=== PATIENT | male | born 1965 | race Caucasian/White ===

== ENCOUNTER 2020-12-08 22:00 | Emergency (ER) | payer SELFPAY ==
[~2020-12-08] VITALS: Ht 188 cm; Wt 113.4 kg
[~2020-12-08 22:00] MED LIST: HYDACE5 PO; PENVK500 PO
== END 2020-12-09 01:00 | disposition home or self-care (01) ==
LOC: ER 22:00
DX: F10.129 Alcohol abuse with intoxication, unspecified (principal); S00.03XA Contusion of scalp, initial encounter; W22.8XXA Striking against or struck by other objects, initial encounter
CPT/HCPCS: 36415; 70450; 71045; 72125; 73070; 96361; 96374; 99284-25; J2405; J7030